=== PATIENT | male | born 1940 | race Caucasian/White ===

== ENCOUNTER → 2017-04-30 | Outpatient (CLI) | payer OTHER ==
[~2017-04-30] MED LIST: ALDACTONE25 MG PO; ASPIRIN325 PO; COREG6.25 MG PO; COUMADIN 2 MG TA2 M1 PO; COUMADIN 3 MG TA3 M1 PO; COZAAR 50 MG TA50 M2 PO; LASIX 40 MG TAB40 M2 PO; LASIX 80 MG TAB80 MG PO; LIPITOR10 MG PO; LUTEIN-ZEAXANT1 EACH PO; UBIQUINOL100 MG PO; VENTOLIN HFA 1818 GM INH
[2017-04-30 09:11] LABS: CREATININE 1.1 mg/dL (0.7-1.3)
== END ==
LOC: CAT 08:32
PROVIDERS: Nuclear Medicine Nuclear Cardiology
DX: Z01.812 Encounter for preprocedural laboratory examination (principal); I71.4 Abdominal aortic aneurysm, without rupture; I74.09 Other arterial embolism and thrombosis of abdominal aorta; K80.80 Other cholelithiasis without obstruction; J98.11 Atelectasis

== ENCOUNTER → 2018-12-02 | Outpatient (CLI) | payer OTHER | LOC: HYPER 06:41 | DX: S90.512A Abrasion, left ankle, initial encounter (principal); I87.2 Venous insufficiency (chronic) (peripheral); L30.9 Dermatitis, unspecified; R60.0 Localized edema; I50.9 Heart failure, unspecified; I25.10 Atherosclerotic heart disease of native coronary artery without angina pectoris; I25.2 Old myocardial infarction; I73.9 Peripheral vascular disease, unspecified; I71.4 Abdominal aortic aneurysm, without rupture; I65.29 Occlusion and stenosis of unspecified carotid artery; E66.09 Other obesity due to excess calories; Z95.0 Presence of cardiac pacemaker; Z79.01 Long term (current) use of anticoagulants; Z87.891 Personal history of nicotine dependence; X58.XXXA Exposure to other specified factors, initial encounter; Y93.89 Activity, other specified; Y92.89 Other specified places as the place of occurrence of the external cause; Y99.8 Other external cause status ==

== ENCOUNTER → 2019-12-30 | Outpatient (CLI) | payer OTHER | LOC: HYPER 10:26 | PROVIDERS: ATTEND Emergency Medicine | DX: L97.811 Non-pressure chronic ulcer of other part of right lower leg limited to breakdown of skin (principal); R60.0 Localized edema; I89.0 Lymphedema, not elsewhere classified; E66.09 Other obesity due to excess calories; I50.9 Heart failure, unspecified; I73.9 Peripheral vascular disease, unspecified; I87.2 Venous insufficiency (chronic) (peripheral); I71.4 Abdominal aortic aneurysm, without rupture; I25.10 Atherosclerotic heart disease of native coronary artery without angina pectoris; I25.2 Old myocardial infarction; I65.09 Occlusion and stenosis of unspecified vertebral artery; Z87.891 Personal history of nicotine dependence; Z95.0 Presence of cardiac pacemaker; Z68.34 Body mass index [BMI] 34.0-34.9, adult; Z79.01 Long term (current) use of anticoagulants; Z95.1 Presence of aortocoronary bypass graft ==

== ENCOUNTER → 2020-01-06 | Outpatient (CLI) | payer OTHER | LOC: HYPER 09:39 | PROVIDERS: ATTEND Emergency Medicine | DX: L97.811 Non-pressure chronic ulcer of other part of right lower leg limited to breakdown of skin (principal); R60.0 Localized edema; E66.09 Other obesity due to excess calories; I73.9 Peripheral vascular disease, unspecified; I87.2 Venous insufficiency (chronic) (peripheral); I71.4 Abdominal aortic aneurysm, without rupture; I65.09 Occlusion and stenosis of unspecified vertebral artery; I50.9 Heart failure, unspecified; I25.10 Atherosclerotic heart disease of native coronary artery without angina pectoris; I25.2 Old myocardial infarction; Z68.34 Body mass index [BMI] 34.0-34.9, adult; Z87.891 Personal history of nicotine dependence; Z95.0 Presence of cardiac pacemaker; Z79.01 Long term (current) use of anticoagulants ==

== ENCOUNTER 2020-01-22 13:38 | Inpatient (IN) | payer OTHER ==
[~2020-01-22] VITALS: Ht 177.8 cm; Wt 104.9 kg
[2020-01-22 13:39] VITALS: BP 187/78
[2020-01-22 14:10] LABS: ABSOLUTE NEUTROPHILS 4.5 thou/uL (1.4-8.2); BASOPHILS 0.6 % (0.0-2.0); HEMATOCRIT 44.5 % (42.0-52.0); LYMPHOCYTES 22.1 % (24.0-44.0); MCHC 33.6 g/dL (28.0-37.0); MCV 98.2 fL (80.0-100.0); MONOCYTES 8.4 % (1.0-8.0); PLATELET COUNT 207 thou/uL (150-400); POLYS 67.9 % (36.0-66.0); RBC 4.54 mil/uL (4.50-6.00); RDW 15.1 % (10.5-14.5); WBC 6.6 thou/uL (4.0-11.0)
[2020-01-22 14:21] LABS: APTT 39.2 Seconds (24.5-32.8); INR 3.7; PROTIME 37.6 Seconds (9.3-11.4)
[2020-01-22 14:22] LABS: ANION GAP 12 mmol/L (7-16); BUN 14 mg/dL (7-18); CALCIUM 8.8 mg/dL (8.5-10.1); CHLORIDE 104 mmol/L (98-107); CO2 25 mmol/L (21-32); CREATININE 1.1 mg/dL (0.7-1.3); GLUCOSE 134 mg/dL (74-106); POTASSIUM 4.4 mmol/L (3.5-5.1); SODIUM 141 mmol/L (136-145)
[2020-01-22 14:28] LABS: ALBUMIN 3.8 g/dL (3.4-5.0); SGOT 27 U/L (15-37); SGPT 33 U/L (30-65); TOTAL BILIRUBIN 1.4 mg/dL (0.2-1.0); TOTAL PROTEIN 7.2 g/dL (6.4-8.2); TROPONIN-I <0.06 ng/mL (<0.06)
[2020-01-22] MEDS ORDERED: WARFARIN SODIUM6 MG PO (14:30)
[2020-01-22] MEDS ORDERED: BENICAR20 MG PO (14:43)
[2020-01-22] MEDS ORDERED: AVAPRO 150 MG150 M1 PO (14:43)
[2020-01-22 16:51] LABS: URINE BILIRUBIN NEGATIVE (Negative); URINE BLOOD NEGATIVE (Negative); URINE CLARITY CLEAR; URINE COLOR YELLOW; URINE GLUCOSE-RANDOM* NEGATIVE (Negative); URINE KETONES NEGATIVE (Negative); URINE LEUKOCYTES-REFLEX NEGATIVE (Negative); URINE NITRITE-REFLEX NEGATIVE (Negative); URINE PROTEIN (DIPSTICK) NEGATIVE (Negative); URINE UROBILINOGEN 0.2 E.U./dl (0.2-1.0)
[2020-01-22 18:11] VITALS: BP 172/79
[2020-01-22 18:30] VITALS: BP 189/78
[2020-01-22 20:03] VITALS: BP 146/81
--- NOTE | 2020-01-23 00:22 | NUR ---
PATIENT ARRIVED AT 1715 PER AM NURSE. ALERT AND ORIENTED X4. SITTING ON SIDE OF BED WITH 02NC 2L. SOA. COOPERATIVE WITH CARE. WILL MONITOR.
[2020-01-23 02:59] LABS: HEMATOCRIT 39.8 % (42.0-52.0); HEMOGLOBIN 13.5 gm/dL (14.0-18.0); MCHC 33.9 g/dL (28.0-37.0); MCV 97.5 fL (80.0-100.0); RBC 4.08 mil/uL (4.50-6.00)
[2020-01-23 03:07] LABS: INR 3.9; PROTIME 40.4 Seconds (9.3-11.4)
[2020-01-23 03:16] LABS: CALCIUM 8.8 mg/dL (8.5-10.1); CREATININE 1.1 mg/dL (0.7-1.3); POTASSIUM 3.9 mmol/L (3.5-5.1)
--- NOTE | 2020-01-23 04:21 | NUR ---
PATIENT REMAINS ALERT AND ORIENTED X4. GIVES A GOOD HISTORY WITH HIS HEALTH. UP DANGLING ON SIDE OF BED, STATES HE BREATHES BETTER. 2-3L NC WITH SOME SOA AT TIMES. PATIENT STATES HE COUGHS UP CLEAR, BUBBLY SPUTUM AT TIMES. BILATERAL LOWER LEGS W/O WOUNDS, HOWEVER, SKIN IS DARK, TIGHT AND DRY. EDEMA TO FEET AND ANKLES +3-4 WITHOUT WEEPING. HE LIVES AT HOME BY HIMSELF WITH NEIGHBORS LOOKING IN. UP WITH WALKER AT HOME, HOWEVER, NO OXYGEN. PACEMAKER WITH V-PACE. RESTING QUIETLY. WILL MONITOR.
[2020-01-23 04:23] VITALS: BP 129/55
[2020-01-23 07:43] VITALS: BP 114/48
--- NOTE | 2020-01-23 10:19 | EKG ---
[facility] [place] [address] ELECTROCARDIOGRAM REPORT Name: ROCK KING Room #: 353-P ADM IN M.R.#: [id number] Admission: 01/22/20 Attend Phys: Mitch Winter MD Discharge: Date of : 36 Report #: [id number] THIS REPORT FOR: cc: Alton Centeno MD, Rene P. MD Lundgren,Amadou Lester MD [facility] ~ THIS REPORT FOR: //name// [facility] ED Test Date: 2020-01-22 Test Time: 13:56:39 Pat Name: ROCK KING Department: Room: [facility] Gender: M Prescription Clerk Lenses: pedro : 1940 Requested By: Nubia Aguirre Order Number: [id number] MD: Amadou Townsend Measurements Intervals [place] Rate: 111 P: MD: QRS: 246 QRSD: 200 T: 202 QT: 393 QTc: 534 Interpretive Statements Ventricular pacing No further analysis attempted due to paced rhythm Baseline wander in lead(s) V3,V4,V5 Compared to ECG 09/09/2001 16:09:16 Ventricular pacing is now present Electronically Signed On 01-23-2020 10:19:25 CDT by Amadou Townsend [email or web address] <ELECTRONICALLY SIGNED> By: Amadou Townsend MD, FAC 01/23/20 1019 1356 1356 Amadou Townsend MD, FAC /EPI
[2020-01-23 12:31] VITALS: BP 96/38
[2020-01-23] MEDS ORDERED: JANTOVEN4 MG PO (14:39)
[2020-01-23 17:25] VITALS: BP 113/44
[2020-01-23 19:36] VITALS: BP 114/39
[2020-01-23 23:17] VITALS: BP 113/43
[2020-01-24] VITALS (9 sets, daily range): BP systolic 101–151; BP diastolic 35–83
--- NOTE | 2020-01-24 02:09 | NUR ---
PT IS ALERT AND ORIENTED X4. PT WAS IRRITABLE AT START OF SHIFT. ANXIOUS AT TIMES. VSS AFEBRILE. NO C/O PAIN. NONPRODUCTIVE COUGH NOTED. LEVOQUIN STARTED IVPB ORDERED FOR GRAM + COCCI AFTER SPEAKING WITH TILA DAY JAVA SOFTWARE ENGINEER. ENC PT TO TURN IN BED. HE IS ABLE TO TURN SELF. V PACED ON MONITOR. BED DOWN CALL LIGHT IN REACH. BED ALARM ON.
[2020-01-24 06:28] LABS: CALCIUM 8.6 mg/dL (8.5-10.1); CREATININE 1.1 mg/dL (0.7-1.3)
[2020-01-24 09:01] LABS: INR 4.4; PROTIME 45.5 Seconds (9.3-11.4)
--- NOTE | 2020-01-24 13:22 | NUR ---
Chart reviewed and case discussed with the care team. Nursing reports pt is in enhanced ISO with first covid neg test. Pt is being treated for acute CHF. Mending Carrier attempted x 3 to call in the room and on pt's cell phone to complete screening assessment. PT/OT zayda are pending pt being dc'd from ISO. Mending Carrier spoke with pt's dpoa/friend Chaya to verify his cell number. She reports that pt is a life long friend of her father's. She has not spoken with him for a couple of months as he is pretty indep and has friends/neighbors that help with any day to day needs. She is available as needed and is his dpoa for hc. The pt lives in a condo alone and has been indep with gait using a rwalker. He does not have home o2. He has been to snf at [facility] in 2017. He will likely tx to CCU once ISO discontinued. Pt may be a candidate for HH f/u at [facility] pending his progress. Will follow.
--- NOTE | 2020-01-24 14:06 | NUR ---
PT IS A&OX3, PT IS ON O2 2L/MIN/NC, PT'S VS ARE STABLE , PT DOES NOT HAVE SOB AND PAIN AT THIS TIME, PT'S COVID ISOLATION HAS DC DUE TO NEGATIVE RESULT, PT IS GOING TO CCU WHEN BED IS AVALIABLE.
--- NOTE | 2020-01-25 02:53 | NUR ---
ASSUMED CARE OF PATIENT AT 1900. AT INITIAL ASSESSMENT PATIENT HAD LOOSE COUGH WITH COARSE LUNG SOUNDS. COUGH WAS SPORADIC T/O NOC. PATIENT HAS NOTABLE EDEMA IN BILATERAL LEGS WITH 3+ IN LEFT AND 2+ IN RIGHT. LOWER EXTREMITIES ARE RED AND WARM. PATIENT REFUSED IV LEVAQUIN. PATIENT STATED THAT HAD TOLD A PREVIOUS NURSE DURING THE DAY THAT HE DIDN'T NEED ABT AND THAT HE DIDN'T HAVE BACTEREMIA. ADVISED PATIENT THAT NURSING WOULD HAVE RECEIVED ORDERS IF THAT WERE THE CASE. UNABLE TO FIND ANY NOTES TO SUPPORT THE PATIENT'S STATEMENT. WILL ATTEMPT TO CLARIFY THIS SITUATION.
[2020-01-25 04:49] VITALS: BP 123/56
[2020-01-25 05:11] LABS: PROTIME 29.3 Seconds (9.3-11.4)
[2020-01-25 05:13] LABS: INR 2.8
[2020-01-25 05:16] LABS: CALCIUM 8.4 mg/dL (8.5-10.1); POTASSIUM 3.6 mmol/L (3.5-5.1)
[2020-01-25 08:20] VITALS: BP 128/56
[2020-01-25 08:21] VITALS: BP 128/56
--- NOTE | 2020-01-25 09:50 | 2DMMODE ---
[facility] [place] [address] 2 D/M-MODE ECHOCARDIOGRAM Name: ROCK KING Room #: 206-P ADM IN M.R.#: [id number] Admission: 01/22/20 Attend Phys: Mitch Winter MD Discharge: Date of : 36 Report #: [id number] THIS REPORT FOR: cc: Alton Centeno MD, Rene P. MD Lammoglia, Francisco J. MD ~ APPROVED REPORT Study performed: 01/25/2020 07:42:08 EXAM: Comprehensive 2D, Doppler, and color-flow Echocardiogram Patient Location: Bedside Room #: 206 Status: routine BSA: 2.26 HR: 67 bpm BP: 123/65 mmHg Rhythm: Irregular. Paced. Other Information Study Quality: Adequate/patient flat on back. Indications CHF. Short of breath, edema. Hx: MS, CABG, Pacer/defib, Afib, PVD, HTN, HLP, obesity. 2D Dimensions RVDd: 46.22 mm IVSd: 12.86 (7-11mm) LVOT Diam: 25.47 (18-24mm) LVDd: 66.16 mm PWd: 9.42 (7-11mm) LVDs: 60.01 (25-40mm) Aortic Root: 40.24 mm Volumes Left Atrial Volume (Systole) Single Plane 4CH: 130.85 mL Single Plane 2CH: 149.18 mL LA ESV Index: 67.00 mL/m2 Aortic Valve AoV Peak Leif.: 1.36 m/s AO Peak Gr.: 7.36 mmHg LVOT Max P.88 mmHg LVOT Max V: 0.69 m/s BABAR Vmax: 2.58 cm2 [facility] [address] [place] [address] 2 D/M-MODE ECHOCARDIOGRAM Name: ROCK KING Room #: [facility] ADM IN .R.#: [id number] Admission: 01/22/20 Attend Phys: Mitch Winter MD Discharge: Date of : 36 Report #: [id number] Mitral Valve E/A Ratio: 2.7 MV Decel. Time: 173.06 ms MV E Max Leif.: 0.85 m/s MV A Leif.: 0.32 m/s MV PHT: 50.19 ms IVRT: 59.98 ms Pulmonary Valve PV Peak Leif.: 0.73 m/s PV Peak Gr.: 2.14 mmHg Tricuspid Valve TR Peak Leif.: 2.32 m/s RAP Estimate: 10.00 mmHg TR Peak Gr.: 22.00 mmHg PA Pressure: 32.00 mmHg Left Ventricle Left ventricle is moderately dilated. Mild septal hypertrophy is present. Left ventricular systolic function is severely decreased. LVEF is 30-35%. Right Ventricle Right ventricle is dilated. Right ventricle is moderately hypokinetic. Device lead is present in the right ventricle. Atria Left atrium is severely dilated. Right atrium is moderately dilated. Aortic Valve Aortic valve leaflets are mildly thickened and calcified. Mild aortic regurgitation. There is no aortic valvular stenosis. Mitral Valve The mitral valve is normal in structure. Mild to moderate mitral regurgitation. Tricuspid Valve The tricuspid valve is normal in structure. Mild tricuspid regurgitation. Estimated PAP is 30-35mmHg. Pulmonic Valve The pulmonary valve is normal in structure. Mild pulmonic regurgitation. [facility] [address] [place] [address] 2 D/M-MODE ECHOCARDIOGRAM Name: ROCK KING Room #: 206-P ADM IN M.R.#: [id number] Admission: 01/22/20 Attend Phys: Mitch Winter MD Discharge: Date of : 36 Report #: [id number] Great Vessels Aortic root is mildly dilated. IVC is dilated and collapses >50% with inspiration. Pericardium There is no pericardial effusion. <Conclusion> Left ventricle is moderately dilated. LVEF is 30-35%. Right ventricle is dilated. Right ventricle is moderately hypokinetic. Device lead is present in the right ventricle. Left atrium is severely dilated. Right atrium is moderately dilated. Aortic valve leaflets are mildly thickened and calcified. The mitral valve is normal in structure. The tricuspid valve is normal in structure. Mild tricuspid regurgitation. Estimated PAP is 30-35mmHg. The pulmonary valve is normal in structure. Mild pulmonic regurgitation. There is no pericardial effusion. <ELECTRONICALLY SIGNED> By: Wilmer Lyon MD 01/25/2050 9 9 Wilmer Lyon MD /INF
[2020-01-25 12:15] VITALS: BP 109/50
[2020-01-25 16:02] VITALS: BP 136/73
--- NOTE | 2020-01-25 18:20 | NUR ---
ASSESSMENT CHARTED - MEDS PER AUG - NO CO'S OF PAIN OR NAUSEA. SALLY DIET AND FLUIDS. PT REMINS ON 2000CC FLUID RESTRICTION - PATIENT IS SWARE OF RESTRICTION. SSEEN BY PHYS AND OCC THERAPY THIS AM - PT AMBULATED WITH THE USE OF A WALKER IN THE ROOM AND PLASCENCIA. PT DOES BECOME SOB WITH EXERTION. O2 DOWN TO 1 L NC AND SAT OF 98 % WITH AMBULATION. LASIX GIVEN ORDERED WITH GOOD DIURESIS. ECHO COMPLETED ORDERED. NO CO'S AT THE PRESENT TIME. STATES THAT HE IS COMFORTABLE.
[2020-01-25 19:48] VITALS: BP 106/48
--- NOTE | 2020-01-26 04:41 | NUR ---
ASSUMED CARE OF PATIENT AT 1900. AT ASSESSMENTS PATIENT BLE EDEMA IMPROVED FROM PREVIOUS NOC. PATIENT DENIES ANY PAIN. PATIENT RESTED WELL THROUGH NOC AND APPEARS TO BE PROGRESSING TOWARDS GOALS.
[2020-01-26 04:44] LABS: PROTIME 20.8 Seconds (9.3-11.4)
[2020-01-26 04:57] LABS: CALCIUM 8.8 mg/dL (8.5-10.1); CREATININE 1.1 mg/dL (0.7-1.3); POTASSIUM 3.7 mmol/L (3.5-5.1)
[2020-01-26 05:01] VITALS: BP 125/58
[2020-01-26 07:54] VITALS: BP 123/60
--- NOTE | 2020-01-26 10:19 | NUR ---
Patient cont with 1 liter of oxygen. Chest xray ordered. patient unsure if will dc today. he reports if dc he needs to call neighbor Geremias. Discussed likely home with HH care at [facility]. He has no preference for HH reports did not like [facility] in past. Verified address, PCP Dr Centeno.
[2020-01-26 10:33] VITALS: BP 123/60
[2020-01-26] MEDS ORDERED: DEMADEX20 MG PO (11:39)
[2020-01-26] MEDS ORDERED: POTASSIUM20 PO (11:39)
[2020-01-26] MEDS ORDERED: WARFARIN SODIUM5 MG PO (11:41)
--- NOTE | 2020-01-26 12:05 | NUR ---
FAXED REFERRAL TO [facility] SPOKE WITH DEVON IN INTAKE SHE RECEIVED REFERRAL AND IS OON WITH INSURANCE.
[2020-01-26 12:28] VITALS: BP 109/52
[2020-01-26 14:27] VITALS: BP 123/60
--- NOTE | 2020-01-26 15:11 | NUR ---
FAXED REFERRAL TO [facility] SPOKE WITH KAVON IN INTAKE SHE RECEIVED REFERRAL AND WILL ACCEPT. FAXED DC ORDERS/SUMMARY RECEIVED CONFIRMATION AND [facility] WILL CALL PT AND SET UP VISITS.
--- NOTE | 2020-01-26 16:15 | NUR ---
ASSUMMED PT CARE AT [facility] 0700. PT A&O X4. ASSESSMENT CHARTED. FALL PRECAUTIONS IN PLACE. PT DENIES HAVING CHEST PAIN. PT STATED HE HAS SOB ON EXERSION. O2 SAT STABLE. VITAL SIGNS STABLE. PT DENIES HAVING ACUTE PAIN. PT DISCHARGING HOME C HOME HEALTH. IV'S DC. TELE DC. PT RECEIVED DISCHARGE EDUCATION. PT STATED UNDERSTANDING AND DENIED HAVING FURTHER QUESTIONS. PT AMBULATES STEADY C WALKER AND STANDBY. PT RECEVING HOSPITAL TRANSPORT OFF UNIT. PT COMFORTABLE. PT DENIES HAVING FURHTER CONCERNS.
== END 2020-01-26 17:44 | disposition home health service (06) | DRG 291 ==
LOC: ER 13:38 → 2N 16:16 → EROBS 16:16 → 3W 16:16 → EROBS 16:20 → 3W 19:00 → 2N 01-24 17:53
PROVIDERS: Nurse Practitioner Adult Health; Physician Assistant; ADMIT Hospitalist; ATTEND Hospitalist
PROC: 4B02XSZ Measurement of Cardiac Pacemaker, External Approach (ICD-10-PCS; principal; 2020-01-26)
DX: I11.0 Hypertensive heart disease with heart failure (principal); J96.01 Acute respiratory failure with hypoxia; R78.81 Bacteremia; I48.92 Unspecified atrial flutter; I48.91 Unspecified atrial fibrillation; I50.43 Acute on chronic combined systolic (congestive) and diastolic (congestive) heart failure; J45.909 Unspecified asthma, uncomplicated; I25.10 Atherosclerotic heart disease of native coronary artery without angina pectoris; M19.90 Unspecified osteoarthritis, unspecified site; E78.5 Hyperlipidemia, unspecified; I25.5 Ischemic cardiomyopathy; I73.9 Peripheral vascular disease, unspecified; I65.29 Occlusion and stenosis of unspecified carotid artery; E78.00 Pure hypercholesterolemia, unspecified; I71.4 Abdominal aortic aneurysm, without rupture; B96.89 Other specified bacterial agents as the cause of diseases classified elsewhere; G47.00 Insomnia, unspecified; Z20.828 Contact with and (suspected) exposure to other viral communicable diseases; N40.0 Benign prostatic hyperplasia without lower urinary tract symptoms; Z87.891 Personal history of nicotine dependence; Z79.899 Other long term (current) drug therapy; Z88.0 Allergy status to penicillin; I25.2 Old myocardial infarction; Z79.01 Long term (current) use of anticoagulants; Z88.1 Allergy status to other antibiotic agents; Z88.2 Allergy status to sulfonamides; Z95.1 Presence of aortocoronary bypass graft; Z95.810 Presence of automatic (implantable) cardiac defibrillator; Z91.14 Patient's other noncompliance with medication regimen
CPT/HCPCS: 10081; 10879

== ENCOUNTER 2020-02-10 15:20 | Inpatient (IN) | payer OTHER ==
[~2020-02-10] VITALS: Ht 177.8 cm; Wt 101.2 kg
[~2020-02-10 15:20] MED LIST changes: -C-10001000 MG PO; -WARFARIN SODIUM2 MG PO
[2020-02-10 15:25] VITALS: BP 103/38
[2020-02-10 16:45] LABS: ABSOLUTE NEUTROPHILS 4.3 thou/uL (1.4-8.2); HEMATOCRIT 43.1 % (42.0-52.0); HEMOGLOBIN 14.5 gm/dL (14.0-18.0); LYMPHOCYTES 19.4 % (24.0-44.0); MCH 32.6 pg (26.0-34.0); MCHC 33.7 g/dL (28.0-37.0); MCV 96.6 fL (80.0-100.0); MONOCYTES 6.5 % (1.0-8.0); PLATELET COUNT 170 thou/uL (150-400); POLYS 72.1 % (36.0-66.0); RBC 4.46 mil/uL (4.50-6.00); RDW 14.6 % (10.5-14.5); WBC 5.9 thou/uL (4.0-11.0)
[2020-02-10 16:47] VITALS: BP 103/38
[2020-02-10 16:55] LABS: CALCIUM 9.1 mg/dL (8.5-10.1); CREATININE 1.1 mg/dL (0.7-1.3); POTASSIUM 4.6 mmol/L (3.5-5.1)
[2020-02-10 17:13] VITALS: BP 138/46
[2020-02-10 17:40] VITALS: BP 146/55
--- NOTE | 2020-02-10 17:45 | NUR ---
Pt admitted to 212 from the emergency dept. Pt is alert and oriented. Pt went into bathroom and voided prior to getting into bed. Placed on color television console monitor and oriented to call light and room. Pt states he was recently discharged from the hospital. Pt reporting pain, frequency and difficulty with urination. States he has to sit to void.
--- NOTE | 2020-02-10 18:30 | NUR ---
Dr Chew notified of patients concerns of urinary symptoms. Ordes received.
--- NOTE | 2020-02-10 19:30 | NUR ---
Admission assessment completed. Report given to IGLESIA Arnold assuming care of patient. Informed that time costraints did not allow for completion of the admission history. Pt completed dinner. Provided with container to collect urine specimen.
[2020-02-10 19:48] VITALS: BP 137/65
--- NOTE | 2020-02-10 20:00 | NUR ---
Urine specimen sent to the lab.
[2020-02-10 21:09] LABS: URINE BILIRUBIN NEGATIVE (Negative); URINE BLOOD NEGATIVE (Negative); URINE CLARITY SL CLOUDY; URINE COLOR YELLOW; URINE GLUCOSE-RANDOM* NEGATIVE (Negative); URINE KETONES NEGATIVE (Negative); URINE LEUKOCYTES NEGATIVE (Negative); URINE NITRITE NEGATIVE (Negative); URINE PROTEIN (DIPSTICK) NEGATIVE (Negative); URINE UROBILINOGEN 0.2 E.U./dl (0.2-1.0)
[2020-02-11] VITALS (7 sets, daily range): BP systolic 122–161; BP diastolic 46–80
--- NOTE | 2020-02-11 03:04 | NUR ---
ASSESSMENTS CHARTED, MEDS CHARTED GIVEN. PATIENT RESTING IN BED DURING SHIFT. UP TO [facility] WITH STANDBY ASSIST AND HIS WALKER. PATIENT IS SCHEDULED FOR A GENERATOR CHANGE IN THE AM. PATIENT HAS BEEN NPO SINCE MIDNIGHT. C/O PAIN WHEN URINATING. STATES PAIN IS LESS WHEN HE IS ABLE TO SIT WHILE URINATING. REFUSES TO PEE IN HAT IN [facility]. FEELS HE IS CONSTIPATED. REQUESTING A FLEET ENEMA.
[2020-02-11] MEDS ORDERED: C-10001000 MG PO ×2 (05:49)
--- NOTE | 2020-02-11 09:01 | EKG ---
[facility] [place] [address] ELECTROCARDIOGRAM REPORT Name: ROCK KING Room #: 212-P ADM IN M.R.#: [id number] Admission: 02/10/20 Attend Phys: Wilmer Lyon Discharge: Date of : 36 Report #: [id number] THIS REPORT FOR: cc: Alton Centeno MD, Rene P. MD Lundgren,Amadou Lester MD [facility] ~ THIS REPORT FOR: //name// [facility] ED Test Date: 2020-02-10 Test Time: 16:40:45 Pat Name: ROCK KING Department: Room: [facility] Gender: M Director Of Quality Control: jake` : 1940 Requested By: Wild Rosario Order Number: [id number] MD: Amadou Townsend Measurements Intervals [place] Rate: 60 P: NC: QRS: -39 QRSD: 145 T: 66 QT: 486 QTc: 486 Interpretive Statements Afib/flutter and ventricular-paced rhythm No further analysis attempted due to paced rhythm Compared to ECG 01/22/2020 13:56:39 No significant changes Electronically Signed On 02-11-2020 9:01:03 CDT by Amadou Townsend [email or web address] <ELECTRONICALLY SIGNED> By: Amadou Townsend MD, FACC 02/11/20 0901 1640 1640 Amadou Townsend MD, FAC /EPI
[2020-02-11] MEDS ORDERED: WARFARIN SODIUM2 MG PO ×2 (10:57)
[2020-02-11] MEDS ORDERED: WARFARIN SODIUM6 MG PO ×2 (13:03)
--- NOTE | 2020-02-11 13:06 | D ---
[facility] [place] [address] DISCHARGE SUMMARY Name: ROCK KING Room #: 212-P ADM IN M.R.#: [id number] Admission: 02/10/20 Attend Phys: Wilmer Lyon Discharge: Date of : 36 Report #: [id number] THIS REPORT FOR: cc: Alton Centeno MD, Rene P. MD Lammoglia, Francisco J. MD ~ THIS REPORT FOR: //name// CC: Wilmer Centeno DATE OF SERVICE: 02/11/2020 ADMITTING DIAGNOSES: 1. Biventricular ICD beyond elective replacement interval. 2. Cardiomyopathy, ischemic. 3. Heart failure with reduced ejection fraction. 4. Hypertension. 5. Atrial flutter. PROCEDURES PERFORMED: 1. Biventricular pacemaker generator change. 2. Supervision of conscious sedation. DISCHARGE MEDICATIONS: 1. Home meds. 2. Follow up with a nurse visit in 7 days for incision check. 3. Dr. Beckham per his regular followup. BRIEF CLINICAL HISTORY: See history and physical in chart. HOSPITAL COURSE: The patient was admitted to the hospital due to the extreme low voltage of his device. He subsequently had no issues preprocedure. He was taken to the labor economist for elective generator change. This was performed without complications with the full dictation noted in the chart. Post-procedure, the patient did quite well, was allowed to recover from the conscious sedation and discharged to home in improved and stable condition. <ELECTRONICALLY SIGNED> By: Wilmer Lyon MD 02/11/20 1306 1001 1023 Wilmer Lyon MD /nt
--- NOTE | 2020-02-11 13:40 | NUR ---
Nutrition: Received consult related to weight loss. Pt reports an intentional nearly 80# weight loss over time due to cutting out sugar. Good appetite observed. S/P generator change and D/C orders in place.
--- NOTE | 2020-02-11 14:04 | NUR ---
ASSESSMENT CHARTED. PT ALERT AND ORIENTED. HAD GENERATOR CHANGE TODAY. PACE MAKER INCISION COVERED WITH GAUZE AND CLEAR TAPE. SMALL AMOUNT OF DRY BLOOD NOTED. PT REPORT FEELING BETTER. DENIED HAVING PAIN. SEEN BY DR. NICHOLSON. ORDERS GIVEN TO DISCHARGE PT TO HOME. DISCHARGE INSTRUCTIONS GIVEN TO PT. PT VERBERLISED UNDERSTANDING. PT PICKED UP HIS BELONGING FROM SECURITY.
--- NOTE | 2020-02-16 17:17 | CATHLAB ---
[facility] [address] [place] [address] INVASIVE PROCEDURE REPORT Name: NAYLACALIXTOROCK Room #: 212-P DIS IN M.R.#: [id number] Admission: 02/10/20 Attend Phys: Wilmer Lyon Discharge: 02/11/20 Date of : 36 Report #: [id number] THIS REPORT FOR: cc: Alton Centeno MD, Rene P. MD Lammoglia, Francisco J. MD ~ APPROVED REPORT Study performed: 02/11/2020 07:55:22 Patient Status: In-Patient Room #: 212 Event Personnel: Wilmer Lyon Manager Product Marketing, Rhona Cullen RTR, BROTH SETTER Monitor, Paul Nolasco RN RN, Piyush Werner RN RN, Hector JohnsonT, RDCS Scrub Exam: Generator Change for a Bi-Ventricular Permanent Pacemaker Indications: OMAYRA The patient is a 80 year-old male with a history of Cardiomyopathy and ventricular tachycardia. Intraoperative Conscious Sedation Sedation start time: 08:39 Case end Time: 09:35 Versed 3 mg Meperidine IV 25 mg Implanted Devices: Medtronic; Model #: [id number]; Serial #: [id number]; Use by: 2020-02-21 Explanted Devices: Medtronic; Model #: [id number]; Serial #: [id number]; Implanted on 06/23/2013 Procedure After explaining the risks, benefits, and alternative options, informed consent was obtained from the patient. The patient was brought to the cardiac catheterization lab and the left chest and shoulder were prepped and draped in the usual fashion. After appropriate sedation was achieved the prior incision line was instilled with 1% lidocaine. Using a blade the incision was carried forth and taken to the subcutaneous tissue. With a Metzenbaum and utilizing both sharp and blunt dissection the defibrillator generator pocket was identified and carefully accessed. The device was then [facility] [place] [address] INVASIVE PROCEDURE REPORT Name: ROCK KING Room #: 212-P DIS IN M.R.#: [id number] Admission: 02/10/20 Attend Phys: Wilmer Hunt Discharge: 02/11/20 Date of : 36 Report #: [id number] delivered. Leads were then repositioned with a new generator. Antibiotic solution was then thoroughly irrigating the pocket the incision the chest and the device prior to placement back into the pocket. Utilizing nonabsorbable 2-0 sutures to rows in a running locking stitch was performed in the subcutaneous tissue. The skin was closed with a 3-0 Vicryl in a subcuticular stitch. 4 x 4 was utilized after Steri-Strips were placed on the skin and an OpSite covered all. Complications The patient tolerated the procedure well and there were no complications associated with the procedure. Conclusion 1. Successful generator change of a Medtronic biventricular ICD Recommendations 1. Routine post generator change protocol <ELECTRONICALLY SIGNED> By: Wilmer Lyon MD 02/16/201715 15 15 Wilmer Lyon MD /INF
== END 2020-02-11 14:04 | disposition home or self-care (01) | DRG 259 ==
LOC: ER 15:20 → 2N 18:06
PROVIDERS: Internal Medicine Cardiovascular Disease; Nurse Practitioner; ADMIT Internal Medicine; ATTEND Internal Medicine
PROC: 4B02XTZ Measurement of Cardiac Defibrillator, External Approach (ICD-10-PCS; principal; 2020-02-10)
PROC: 0JPT0PZ Removal of Cardiac Rhythm Related Device from Trunk Subcutaneous Tissue and Fascia, Open Approach (ICD-10-PCS; 2020-02-11)
PROC: 0JH607Z Insertion of Cardiac Resynchronization Pacemaker Pulse Generator into Chest Subcutaneous Tissue and Fascia, Open Approach (ICD-10-PCS; 2020-02-11)
DX: T82.111A Breakdown (mechanical) of cardiac pulse generator (battery), initial encounter (principal); I48.92 Unspecified atrial flutter; Z20.828 Contact with and (suspected) exposure to other viral communicable diseases; M19.90 Unspecified osteoarthritis, unspecified site; I10 Essential (primary) hypertension; E78.5 Hyperlipidemia, unspecified; I25.5 Ischemic cardiomyopathy; I65.29 Occlusion and stenosis of unspecified carotid artery; I73.9 Peripheral vascular disease, unspecified; F98.8 Other specified behavioral and emotional disorders with onset usually occurring in childhood and adolescence; Z45.010 Encounter for checking and testing of cardiac pacemaker pulse generator [battery]; E78.00 Pure hypercholesterolemia, unspecified; Z88.1 Allergy status to other antibiotic agents; Z88.0 Allergy status to penicillin; Z88.2 Allergy status to sulfonamides; I25.2 Old myocardial infarction; Z87.891 Personal history of nicotine dependence; I50.9 Heart failure, unspecified; Z95.1 Presence of aortocoronary bypass graft; Z79.01 Long term (current) use of anticoagulants; Y83.8 Other surgical procedures as the cause of abnormal reaction of the patient, or of later complication, without mention of misadventure at the time of the procedure; Y92.89 Other specified places as the place of occurrence of the external cause
CPT/HCPCS: 10081

== ENCOUNTER → 2020-02-10 | Outpatient (CLI) | payer OTHER ==
[~2020-02-10] MED LIST changes: +AVAPRO 150 MG150 M1 PO; +BENICAR20 MG PO; +C-10001000 MG PO; +DEMADEX20 MG PO; +JANTOVEN4 MG PO; +POTASSIUM20 PO; +WARFARIN SODIUM2 MG PO; +WARFARIN SODIUM5 MG PO; +WARFARIN SODIUM6 MG PO
== END ==
LOC: SJCVC 14:43
PROVIDERS: ATTEND Internal Medicine Cardiovascular Disease
DX: I42.9 Cardiomyopathy, unspecified (principal); Z79.01 Long term (current) use of anticoagulants; I11.0 Hypertensive heart disease with heart failure; I25.10 Atherosclerotic heart disease of native coronary artery without angina pectoris; I50.9 Heart failure, unspecified; I25.2 Old myocardial infarction; E78.00 Pure hypercholesterolemia, unspecified; I65.23 Occlusion and stenosis of bilateral carotid arteries; I48.4 Atypical atrial flutter; I25.119 Atherosclerotic heart disease of native coronary artery with unspecified angina pectoris; I73.9 Peripheral vascular disease, unspecified; I72.3 Aneurysm of iliac artery

== ENCOUNTER → 2020-08-30 | Outpatient (CLI) | payer OTHER ==
[~2020-08-30] MED LIST changes: +C-10001000 MG PO; +WARFARIN SODIUM2 MG PO
== END ==
LOC: SJCVC 15:06
PROVIDERS: ATTEND Internal Medicine Cardiovascular Disease
DX: I25.119 Atherosclerotic heart disease of native coronary artery with unspecified angina pectoris (principal); I73.9 Peripheral vascular disease, unspecified; I25.5 Ischemic cardiomyopathy; I87.2 Venous insufficiency (chronic) (peripheral); I10 Essential (primary) hypertension; I71.4 Abdominal aortic aneurysm, without rupture; I65.23 Occlusion and stenosis of bilateral carotid arteries; E78.00 Pure hypercholesterolemia, unspecified; I48.92 Unspecified atrial flutter; E78.5 Hyperlipidemia, unspecified; I11.0 Hypertensive heart disease with heart failure; I50.9 Heart failure, unspecified; I25.10 Atherosclerotic heart disease of native coronary artery without angina pectoris; E66.9 Obesity, unspecified; I25.2 Old myocardial infarction; I42.9 Cardiomyopathy, unspecified; Z79.01 Long term (current) use of anticoagulants; Z95.810 Presence of automatic (implantable) cardiac defibrillator; Z87.891 Personal history of nicotine dependence; Z79.899 Other long term (current) drug therapy; Z88.1 Allergy status to other antibiotic agents